=== PATIENT | female | born 1985 | race Asian ===

== ENCOUNTER → 2016-06-19 | Outpatient (CLI) | payer OTHER | LOC: FIMAGING 14:04 | PROVIDERS: ATTEND Obstetrics & Gynecology | DX: Z87.42 Personal history of other diseases of the female genital tract (principal) ==

== ENCOUNTER → 2016-12-17 | Outpatient (CLI) | payer SELFPAY | LOC: FIMAGING 12:33 | PROVIDERS: ATTEND Obstetrics & Gynecology | DX: O99.011 Anemia complicating pregnancy, first trimester (principal); Z3A.12 12 weeks gestation of pregnancy ==

== ENCOUNTER → 2017-02-16 | Outpatient (CLI) | payer OTHER | LOC: FIMAGING 11:40 | PROVIDERS: ATTEND Obstetrics & Gynecology | DX: O26.872 Cervical shortening, second trimester (principal); D56.3 Thalassemia minor; Z3A.20 20 weeks gestation of pregnancy ==

== ENCOUNTER → 2017-02-23 | Outpatient (CLI) | payer OTHER | LOC: FIMAGING 14:12 | PROVIDERS: ATTEND Obstetrics & Gynecology | DX: O26.872 Cervical shortening, second trimester (principal); Z3A.21 21 weeks gestation of pregnancy; Z20.828 Contact with and (suspected) exposure to other viral communicable diseases ==

== ENCOUNTER → 2017-03-18 | Outpatient (CLI) | payer BC | LOC: FIMAGING 12:29 | PROVIDERS: ATTEND Obstetrics & Gynecology | DX: Z03.79 Encounter for other suspected maternal and fetal conditions ruled out (principal); Z3A.25 25 weeks gestation of pregnancy ==

== ENCOUNTER → 2017-05-03 | Outpatient (CLI) | payer BC | LOC: FIMAGING 12:10 | PROVIDERS: ATTEND Obstetrics & Gynecology | DX: Z20.828 Contact with and (suspected) exposure to other viral communicable diseases (principal); Z3A.31 31 weeks gestation of pregnancy ==

== ENCOUNTER → 2017-06-03 | Outpatient (CLI) | payer BC | LOC: FIMAGING 12:29 | PROVIDERS: ATTEND Obstetrics & Gynecology | DX: Z34.03 Encounter for supervision of normal first pregnancy, third trimester (principal); Z3A.36 36 weeks gestation of pregnancy ==